=== PATIENT | male | born 1965 | race Caucasian/White ===

== ENCOUNTER 2019-12-18 15:10 | Emergency (ER) | payer OTHER ==
[~2019-12-18] VITALS: Ht 170.2 cm; Wt 79.4 kg
[2019-12-18] MEDS ORDERED: PLAVIX75 MG PO (15:40)
[2019-12-18] MEDS ORDERED: ECOTRIN81 MG PO (15:40)
[2019-12-18] MEDS ORDERED: ALTACE2.5 MG PO (15:41)
[2019-12-18] MEDS ORDERED: TOPROL XL50 M1 PO (15:41)
[2019-12-18] MEDS ORDERED: LIPITOR20 MG PO (15:42)
== END 2019-12-18 19:31 | disposition home or self-care (01) ==
LOC: ER 15:10
DX: S20.211A Contusion of right front wall of thorax, initial encounter (principal); S30.0XXA Contusion of lower back and pelvis, initial encounter; W10.8XXA Fall (on) (from) other stairs and steps, initial encounter; Y93.89 Activity, other specified; Y92.488 Other paved roadways as the place of occurrence of the external cause; Y99.8 Other external cause status